=== PATIENT | male | born 1960 | race African-American/Black ===

== ENCOUNTER 2018-10-13 21:10 | Inpatient (IN) | payer OTHER ==
[2018-10-13 22:21] VITALS: BMI 25.8
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
[2018-10-13] MEDS ORDERED: MENTHOL/PHENOL 1 EACH UD MM PRN (23:49)
[2018-10-13] MEDS ORDERED: P-EPHED 60MG/TRIPROLIDI 2.5MG TABLET PO PRN (23:49)
[2018-10-13] MEDS ORDERED: MELATONIN 5 MG TABLETS PO PRN (23:49)
[2018-10-13] MEDS ORDERED: ONDANSETRON *ODT* 4 MG TABLET SL PRN (23:49)
[2018-10-13] MEDS ORDERED: IBUPROFEN 400 MG TABLET (FP) PO PRN (23:49)
[2018-10-13] MEDS ORDERED: ACETAMINOPHEN 325 MG TABLET (FP) PO PRN ×2 (23:49)
[2018-10-13] MEDS ORDERED: NICOTINE POLACRILEX 2 MG GUM BUC PRN (23:49)
[2018-10-13] MEDS ORDERED: MAGNESIUM CITRATE 300 ML BOTTLE PO PRN (23:49)
[2018-10-13] MEDS ORDERED: MAGNESIUM HYDROX 2400MG/30ML ORAL SUSPENSION 30 ML CUP PO PRN (23:49)
[2018-10-13] MEDS ORDERED: MAG HYDROX/AL HYDROX/SIMETH 30 ML UNIT-DOSE CUP PO PRN (23:49)
[2018-10-13] MEDS ORDERED: BISMUTH SUBSALICYLATE 524 MG/30 ML UD PO PRN (23:49)
[2018-10-13] MEDS ORDERED: METHOCARBAMOL 500 MG TABLET PO PRN (23:49)
[2018-10-13] MEDS ORDERED: hydrOXYzine PAMOATE 25 MG CAPSULE (FP) PO PRN (23:49)
[2018-10-13] MEDS ORDERED: guaiFENesin 200 MG/10 ML 10 ML UNIT-DOSE CUPS PO PRN (23:49)
[2018-10-14] MEDS ORDERED: chlordiazePOXIDE HCL 25 MG CAPSULE PO PRN (00:10)
[2018-10-14] MEDS ORDERED: chlordiazePOXIDE HCL 25 MG CAPSULE PO ONE (00:10)
[2018-10-14] MEDS: INSULIN (LEVEMIR) 100 UNITS/ML UNITS SQ SCH ×2 (00:35→22:55)
[2018-10-14] MEDS: chlordiazePOXIDE HCL 25 MG CAPSULE PO SCH ×4 (05:46→22:55)
[2018-10-14] MEDS: metFORMIN HCL 500 MG TABLET (FP) PO SCH ×2 (06:03→17:58)
[2018-10-14] MEDS: ASPIRIN 81 MG CHEWABLE TABLETS PO SCH (10:46)
[2018-10-14] MEDS: PANTOPRAZOLE 20 MG TABLET (FP) PO SCH (10:46)
[2018-10-14] MEDS: PRENATAL VITAMINS W/ FOLIC ACID TABLET (FP) PO SCH (10:47)
[2018-10-14] MEDS: LISINOPRIL 10 MG TABLET (FP) PO SCH (10:47)
[2018-10-14] MEDS: NICOTINE 14 MG/24 HOURS TOPICAL PATCH TD SCH (10:48)
[2018-10-14 11:03] LABS: HEMATOCRIT 40.4 % (35.4-49); MCH 26.4 pg (25.7-33.7); MCHC 32.1 g/dl (32.0-35.9); MEAN CELL VOLUME 82.1 fl (80-96); MEAN PLT VOLUME 8.6 fl (7.5-11.1); PLATELET COUNT 184 K/MM3 (134-434); RBC 4.92 M/mm3 (4.00-5.60); RDW 14.7 % (11.9-15.9); WHITE BLOOD COUNT 5.6 K/mm3 (4.0-10.0)
[2018-10-14 11:09] LABS: ALBUMIN 3.3 g/dl (3.4-5.0); ALK PHOS 109 U/L (45-117); ANION GAP 8 MMOL/L (8-16); BILIRUBIN,TOTAL 0.4 mg/dL (0.2-1); BLOOD UREA NITROGEN 14 mg/dL (7-18); CALCIUM 8.3 mg/dL (8.5-10.1); CHLORIDE 100 mmol/L (98-107); CO2 28 mmol/L (21-32); CREATININE 0.8 mg/dL (0.55-1.3); GLUCOSE,RANDOM 244 mg/dL (74-106); POTASSIUM 3.9 mmol/L (3.5-5.1); SGOT/AST 41 U/L (15-37); SGPT/ALT 63 U/L (13-61); SODIUM 135 mmol/L (136-145); TOT PROT 6.3 g/dl (6.4-8.2)
--- NOTE | 2018-10-14 16:58 | PN ---
[facility] CIWA - CIWA Score Nausea/Vomitin-Mild Nausea/No Vomiting Muscle Tremors: 3 Anxiety: 2 Agitation: 2 Paroxysmal Sweats: 3 Orientation: 0-Oriented Tacttile Disturbances: 0-None Auditory Disturbances: 0-None Visual Disturbances: 0-None Headache: 0-None Present CIWA-Ar Total Score: 11 [facility] Progress Note (SOAP) Subjective: sweats Objective: 10/14/18 16:56 In bed irritable because "wants to just sleep" Denies SI/HI no acute distress noted Vital Signs Temperature 97.9 F 10/14/18 09:59 Pulse Rate 99 H 10/14/18 09:59 Respiratory Rate 20 10/14/18 09:59 Blood Pressure 129/80 10/14/18 09:59 O2 Sat by Pulse Oximetry (%) Laboratory Last Values WBC 5.6 K/mm3 (4.0-10.0) 10/14/18 07:45 RBC 4.92 M/mm3 (4.00-5.60) 10/14/18 07:45 Hgb 13.0 GM/dL (11.7-16.9) 10/14/18 07:45 Hct 40.4 % (35.4-49) 10/14/18 07:45 MCV 82.1 fl (80-96) 10/14/18 07:45 MCH 26.4 pg (25.7-33.7) 10/14/18 07:45 MCHC 32.1 g/dl (32.0-35.9) 10/14/18 07:45 RDW 14.7 % (11.9-15.9) 10/14/18 07:45 Plt Count 184 K/MM3 (134-434) 10/14/18 07:45 MPV 8.6 fl (7.5-11.1) 10/14/18 07:45 Sodium 135 mmol/L (136-145) L 10/14/18 07:45 Potassium 3.9 mmol/L (3.5-5.1) 10/14/18 07:45 Chloride 100 mmol/L (98-107) 10/14/18 07:45 Carbon Dioxide 28 mmol/L (21-32) 10/14/18 07:45 Anion Gap 8 MMOL/L (8-16) 10/14/18 07:45 BUN 14 mg/dL (7-18) 10/14/18 07:45 Creatinine 0.8 mg/dL (0.55-1.3) 10/14/18 07:45 Creat Clearance w eGFR 99.64 (>60) 10/14/18 07:45 POC Glucometer 493 UNITS (80-120) 10/14/18 16:54 Random Glucose 244 mg/dL (74-106) H 10/14/18 07:45 Calcium 8.3 mg/dL (8.5-10.1) L 10/14/18 07:45 Total Bilirubin 0.4 mg/dL (0.2-1) 10/14/18 07:45 AST 41 U/L (15-37) H 10/14/18 07:45 ALT 63 U/L (13-61) H 10/14/18 07:45 Alkaline Phosphatase 109 U/L (45-117) 10/14/18 07:45 Total Protein 6.3 g/dl (6.4-8.2) L 10/14/18 07:45 Albumin 3.3 g/dl (3.4-5.0) L 10/14/18 07:45 RPR Titer Nonreactive (NONREACTIVE) 10/14/18 07:45 labs noted, High random glucose; pt is diabetic Assessment: 10/14/18 16:58 withdrawal sx DM 2 Plan: continue detox Continue diabetic agents as ordered continue BGM increase water hydration continue NCS diet
--- NOTE | 2018-10-14 18:36 | PN ---
S Progress Note Note: called by nurse,bgm is [phone],will place patient on sliding scale of novolog coverage,close monitoring
[2018-10-14] MEDS: INSULIN SLIDING SCALE (NOVOLOG) 1 VIAL SQ SCH ×2 (18:55→22:56)
[2018-10-14] MEDS: THIAMINE HCL 100 MG TABLET (FP) PO SCH (22:55)
[2018-10-15] MEDS: metFORMIN HCL 500 MG TABLET (FP) PO SCH ×2 (07:12→16:49)
[2018-10-15] MEDS: chlordiazePOXIDE HCL 25 MG CAPSULE PO SCH ×4 (07:13→22:00)
[2018-10-15] MEDS ORDERED: INSULIN SLIDING SCALE (NOVOLOG) 1 VIAL SQ ONE (07:16)
[2018-10-15] MEDS: INSULIN SLIDING SCALE (NOVOLOG) 1 VIAL SQ SCH ×4 (07:19→22:00)
[2018-10-15] MEDS: ASPIRIN 81 MG CHEWABLE TABLETS PO SCH (10:44)
[2018-10-15] MEDS: LISINOPRIL 10 MG TABLET (FP) PO SCH (10:44)
[2018-10-15] MEDS: PANTOPRAZOLE 20 MG TABLET (FP) PO SCH (10:44)
[2018-10-15] MEDS: PRENATAL VITAMINS W/ FOLIC ACID TABLET (FP) PO SCH (10:45)
--- NOTE | 2018-10-15 10:45 | PN ---
S CIWA - CIWA Score Nausea/Vomitin-Mild Nausea/No Vomiting Muscle Tremors: 2 Anxiety: 1-Mildly Anxious Agitation: 1-Slight > Activity Paroxysmal Sweats: 1-Minimal Palms Moist Orientation: 0-Oriented Tacttile Disturbances: 0-None Auditory Disturbances: 0-None Visual Disturbances: 0-None Headache: 0-None Present CIWA-Ar Total Score: 6 [facility] Progress Note (SOAP) Subjective: discuss risks of glucose serum elevation mild tremor feeling ok today Objective: 10/15/18 10:46 Vital Signs Temperature 97.5 F L 10/15/18 09:49 Pulse Rate 107 H 10/15/18 09:49 Respiratory Rate 18 10/15/18 09:49 Blood Pressure 110/77 10/15/18 09:49 O2 Sat by Pulse Oximetry (%) Laboratory Last Values WBC 5.6 K/mm3 (4.0-10.0) 10/14/18 07:45 RBC 4.92 M/mm3 (4.00-5.60) 10/14/18 07:45 Hgb 13.0 GM/dL (11.7-16.9) 10/14/18 07:45 Hct 40.4 % (35.4-49) 10/14/18 07:45 MCV 82.1 fl (80-96) 10/14/18 07:45 MCH 26.4 pg (25.7-33.7) 10/14/18 07:45 MCHC 32.1 g/dl (32.0-35.9) 10/14/18 07:45 RDW 14.7 % (11.9-15.9) 10/14/18 07:45 Plt Count 184 K/MM3 (134-434) 10/14/18 07:45 MPV 8.6 fl (7.5-11.1) 10/14/18 07:45 Sodium 135 mmol/L (136-145) L 10/14/18 07:45 Potassium 3.9 mmol/L (3.5-5.1) 10/14/18 07:45 Chloride 100 mmol/L (98-107) 10/14/18 07:45 Carbon Dioxide 28 mmol/L (21-32) 10/14/18 07:45 Anion Gap 8 MMOL/L (8-16) 10/14/18 07:45 BUN 14 mg/dL (7-18) 10/14/18 07:45 Creatinine 0.8 mg/dL (0.55-1.3) 10/14/18 07:45 Creat Clearance w eGFR 99.64 (>60) 10/14/18 07:45 POC Glucometer 229 UNITS (80-120) 10/15/18 07:10 Random Glucose 244 mg/dL (74-106) H 10/14/18 07:45 Calcium 8.3 mg/dL (8.5-10.1) L 10/14/18 07:45 Total Bilirubin 0.4 mg/dL (0.2-1) 10/14/18 07:45 AST 41 U/L (15-37) H 10/14/18 07:45 ALT 63 U/L (13-61) H 10/14/18 07:45 Alkaline Phosphatase 109 U/L (45-117) 10/14/18 07:45 Total Protein 6.3 g/dl (6.4-8.2) L 10/14/18 07:45 Albumin 3.3 g/dl (3.4-5.0) L 10/14/18 07:45 RPR Titer Nonreactive (NONREACTIVE) 10/14/18 07:45 lab noted Assessment: 10/15/18 10:47 withdrawal sx Plan: continue detox
[2018-10-15] MEDS: NICOTINE 14 MG/24 HOURS TOPICAL PATCH TD SCH (10:46)
[2018-10-15] MEDS: INSULIN (LEVEMIR) 100 UNITS/ML UNITS SQ SCH (22:00)
[2018-10-15] MEDS: THIAMINE HCL 100 MG TABLET (FP) PO SCH (22:00)
[2018-10-16] MEDS ORDERED: chlordiazePOXIDE HCL 10 MG CAPSULE PO PRN (05:00)
[2018-10-16] MEDS: metFORMIN HCL 500 MG TABLET (FP) PO SCH (07:01)
[2018-10-16] MEDS ORDERED: INSULIN SLIDING SCALE (NOVOLOG) 1 VIAL SQ ONE (07:05)
[2018-10-16] MEDS: chlordiazePOXIDE HCL 10 MG CAPSULE PO SCH ×2 (07:09→10:33)
[2018-10-16] MEDS: INSULIN SLIDING SCALE (NOVOLOG) 1 VIAL SQ SCH ×2 (07:09→12:03)
[2018-10-16] MEDS: LISINOPRIL 10 MG TABLET (FP) PO SCH (10:33)
[2018-10-16] MEDS: PANTOPRAZOLE 20 MG TABLET (FP) PO SCH (10:33)
[2018-10-16] MEDS: PRENATAL VITAMINS W/ FOLIC ACID TABLET (FP) PO SCH (10:33)
[2018-10-16] MEDS: ASPIRIN 81 MG CHEWABLE TABLETS PO SCH (10:33)
[2018-10-16] MEDS: NICOTINE 14 MG/24 HOURS TOPICAL PATCH TD SCH (10:33)
[2018-10-16 13:14] VITALS: BP 111/77; PULSE 109; TEMP 98
--- NOTE | 2018-10-16 17:29 | PN ---
[facility] Progress Note (SOAP) Subjective: Tremors, Anxious, Sweating. Objective: PATIENT A & O X 3, OBSERVED AMBULATING ON UNIT. IN NO ACUTE DISTRESS. 10/16/18 17:27 Laboratory Tests 10/13/18 10/14/18 10/14/18 22:55 05:43 07:45 WBC 5.6 RBC 4.92 Hgb 13.0 Hct 40.4 MCV 82.1 MCH 26.4 MCHC 32.1 RDW 14.7 Plt Count 184 MPV 8.6 Sodium Potassium Chloride Carbon Dioxide Anion Gap BUN Creatinine Creat Clearance w eGFR POC Glucometer 373 248 Random Glucose Calcium Total Bilirubin AST ALT Alkaline Phosphatase Total Protein Albumin RPR Titer 10/14/18 10/14/18 10/14/18 07:45 07:45 16:54 WBC RBC Hgb Hct MCV MCH MCHC RDW Plt Count MPV Sodium 135 L Potassium 3.9 Chloride 100 Carbon Dioxide 28 Anion Gap 8 BUN 14 Creatinine 0.8 Creat Clearance w eGFR 99.64 POC Glucometer 493 Random Glucose 244 H Calcium 8.3 L Total Bilirubin 0.4 AST 41 H ALT 63 H Alkaline Phosphatase 109 Total Protein 6.3 L Albumin 3.3 L RPR Titer Nonreactive 10/14/18 10/15/18 10/15/18 21:39 07:10 16:22 WBC RBC Hgb Hct MCV MCH MCHC RDW Plt Count MPV Sodium Potassium Chloride Carbon Dioxide Anion Gap BUN Creatinine Creat Clearance w eGFR POC Glucometer 257 229 334 Random Glucose Calcium Total Bilirubin AST ALT Alkaline Phosphatase Total Protein Albumin RPR Titer 10/15/18 10/15/18 10/16/18 21:17 21:20 06:59 WBC RBC Hgb Hct MCV MCH MCHC RDW Plt Count MPV Sodium Potassium Chloride Carbon Dioxide Anion Gap BUN Creatinine Creat Clearance w eGFR POC Glucometer 569 552 251 Random Glucose Calcium Total Bilirubin AST ALT Alkaline Phosphatase Total Protein Albumin RPR Titer 10/16/18 11:56 WBC RBC Hgb Hct MCV MCH MCHC RDW Plt Count MPV Sodium Potassium Chloride Carbon Dioxide Anion Gap BUN Creatinine Creat Clearance w eGFR POC Glucometer 255 Random Glucose Calcium Total Bilirubin AST ALT Alkaline Phosphatase Total Protein Albumin RPR Titer LABS NOTED. Assessment: 10/16/18 17:28 WITHDRAWAL SYMPTOMS. Plan: CONTINUE DETOX.
--- NOTE | 2018-10-16 17:36 | DS ---
[facility] Detox Discharge Summary Admission Date: 10/13/18 Discharge Date: 10/16/18 - History Present History: Alcohol Dependence, Cocaine Dependence Additional Comments: PATIENT REPORTS THAT HE HAS A PERSONAL ISSUE TO ATTEND TO AND THAT HE DOES NOT WISH TO REMAIN ANY LONGER TO COMPLETE DETOX REGIMEN. RISKS OF LEAVING DETOX UNIT AGAINST MEDICAL ADVICE AND PRIOR TO COMPLETION OF DETOX REGIMEN EXPLAINED TO PATIENT. PATIENT ADVISED TO GO IMMEDIATELY TO NEAREST ER SHOULD ANY INTOLERABLE WITHDRAWAL / DETOX SYMPTOMS DEVELOP AT ANY TIME. PATIENT VERBALIZED UNDERSTANDING OF ALL INFORMATION / RECOMMENDATIONS PRESENTED TO HIM PRIOR TO DEPARTURE FROM DETOX UNIT. PATIENT DECLINED OFFER OF MEDICATION PRESCRIPTION FOR HOME MEDICATION AT TIME OF DISCHARGE FROM DETOX, NOTING THAT HE CURRENTLY HAS PRESCRIPTIONS FOR ALL PRESCRIBED HOME MEDICATIONS WITH HIS PROPERTY. PATIENT LEFT DETOX UNIT IN STABLE MEDICAL CONDITION. Pertinent Past History: HTN, Type II DM. - Physical Exam Results Vital Signs: Vital Signs Temperature 98.0 F 10/16/18 13:12 Pulse Rate 109 H 10/16/18 13:12 Respiratory Rate 20 10/16/18 13:12 Blood Pressure 111/77 10/16/18 13:12 O2 Sat by Pulse Oximetry (%) Pertinent Admission Physical Exam Findings: WITHDRAWAL SYMPTOMS. Laboratory Tests 10/13/18 10/14/18 10/14/18 22:55 05:43 07:45 WBC 5.6 RBC 4.92 Hgb 13.0 Hct 40.4 MCV 82.1 MCH 26.4 MCHC 32.1 RDW 14.7 Plt Count 184 MPV 8.6 Sodium Potassium Chloride Carbon Dioxide Anion Gap BUN Creatinine Creat Clearance w eGFR POC Glucometer 373 248 Random Glucose Calcium Total Bilirubin AST ALT Alkaline Phosphatase Total Protein Albumin RPR Titer 10/14/18 10/14/18 10/14/18 07:45 07:45 16:54 WBC RBC Hgb Hct MCV MCH MCHC RDW Plt Count MPV Sodium 135 L Potassium 3.9 Chloride 100 Carbon Dioxide 28 Anion Gap 8 BUN 14 Creatinine 0.8 Creat Clearance w eGFR 99.64 POC Glucometer 493 Random Glucose 244 H Calcium 8.3 L Total Bilirubin 0.4 AST 41 H ALT 63 H Alkaline Phosphatase 109 Total Protein 6.3 L Albumin 3.3 L RPR Titer Nonreactive 10/14/18 10/15/18 10/15/18 21:39 07:10 16:22 WBC RBC Hgb Hct MCV MCH MCHC RDW Plt Count MPV Sodium Potassium Chloride Carbon Dioxide Anion Gap BUN Creatinine Creat Clearance w eGFR POC Glucometer 257 229 334 Random Glucose Calcium Total Bilirubin AST ALT Alkaline Phosphatase Total Protein Albumin RPR Titer 10/15/18 10/15/18 10/16/18 21:17 21:20 06:59 WBC RBC Hgb Hct MCV MCH MCHC RDW Plt Count MPV Sodium Potassium Chloride Carbon Dioxide Anion Gap BUN Creatinine Creat Clearance w eGFR POC Glucometer 569 552 251 Random Glucose Calcium Total Bilirubin AST ALT Alkaline Phosphatase Total Protein Albumin RPR Titer 10/16/18 11:56 WBC RBC Hgb Hct MCV MCH MCHC RDW Plt Count MPV Sodium Potassium Chloride Carbon Dioxide Anion Gap BUN Creatinine Creat Clearance w eGFR POC Glucometer 255 Random Glucose Calcium Total Bilirubin AST ALT Alkaline Phosphatase Total Protein Albumin RPR Titer LABS NOTED. - Treatment Hospital Course: Detox Protocol Followed, Detoxed Safely - Medication Discharge Medications: Ambulatory Orders metFORMIN HCL [Glucophage] 1,000 mg PO BID #60 tab 03/19/14 Aspirin [ASA -] 81 mg PO DAILY 10/13/18 Insulin Glargine,Hum.rec.anlog [Lantus Solostar PEN -] 25 units SQ HS 10/13/18 Lisinopril [Prinivil] 10 mg PO DAILY 10/13/18 Omeprazole 20 mg PO BID 10/13/18 - AMA Did Patient Leave Against Medical Advice: Yes (PT HAS PERSONAL ISSUE AND DOES NOT WISH TO REMAIN TO COMPLETE DETOX REGIMEN)
[2018-10-17] MEDS ORDERED: chlordiazePOXIDE HCL 10 MG CAPSULE PO SCH (05:00)
== END 2018-10-16 14:13 | disposition left against medical advice (07) | DRG 770 ==
LOC: YASAS 21:10 → Y3N 22:24
PROVIDERS: ADMIT Surgery; ATTEND Surgery
PROC: HZ2ZZZZ Detoxification Services for Substance Abuse Treatment (ICD-10-PCS; principal; 2018-10-13)
DX: F10.230 Alcohol dependence with withdrawal, uncomplicated (principal); F14.20 Cocaine dependence, uncomplicated; I10 Essential (primary) hypertension; E11.65 Type 2 diabetes mellitus with hyperglycemia; Z79.4 Long term (current) use of insulin; Z79.84 Long term (current) use of oral hypoglycemic drugs
CPT/HCPCS: 36415; 80053; 82962; 85027; 86593

== ENCOUNTER 2019-08-02 12:08 | Inpatient (IN) | payer OTHER ==
[2019-08-02 14:59] VITALS: BMI 21.8
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
[2019-08-02] MEDS ORDERED: MAGNESIUM CITRATE 300 ML BOTTLE PO PRN (18:55)
[2019-08-02] MEDS ORDERED: BISMUTH SUBSALICYLATE 524 MG/30 ML UD PO PRN (18:55)
[2019-08-02] MEDS ORDERED: ACETAMINOPHEN 325 MG TABLET (FP) PO PRN ×2 (18:55)
[2019-08-02] MEDS ORDERED: METHOCARBAMOL 500 MG TABLET PO PRN (18:55)
[2019-08-02] MEDS ORDERED: MAGNESIUM HYDROX 2400MG/30ML ORAL SUSPENSION 30 ML CUP PO PRN (18:55)
[2019-08-02] MEDS ORDERED: guaiFENesin 200 MG/10 ML 10 ML UNIT-DOSE CUPS PO PRN (18:55)
[2019-08-02] MEDS ORDERED: ONDANSETRON *ODT* 4 MG TABLET SL PRN (18:55)
[2019-08-02] MEDS ORDERED: IBUPROFEN 400 MG TABLET (FP) PO PRN (18:55)
[2019-08-02] MEDS ORDERED: MAG HYDROX/AL HYDROX/SIMETH 30 ML UNIT-DOSE CUP PO PRN (18:55)
[2019-08-02] MEDS ORDERED: MELATONIN 5 MG TABLETS PO PRN (18:55)
[2019-08-02] MEDS ORDERED: MENTHOL/PHENOL 1 EACH UD MM PRN (18:55)
[2019-08-02] MEDS ORDERED: hydrOXYzine PAMOATE 25 MG CAPSULE (FP) PO PRN (18:55)
[2019-08-02] MEDS: chlordiazePOXIDE HCL 10 MG CAPSULE PO PRN (19:48)
[2019-08-02] MEDS: INSULIN (LEVEMIR) 100 UNITS/ML UNITS SQ SCH (21:32)
[2019-08-02] MEDS: INSULIN SLIDING SCALE (NOVOLOG) 1 VIAL SQ SCH (21:33)
[2019-08-02] MEDS ORDERED: PATIENT'S OWN MEDICATION (NON-FORMULARY) (Metformin Hcl [Glucophage] 1,000 MG) PO SCH (22:00)
[2019-08-02] MEDS ORDERED: PATIENT'S OWN MEDICATION (NON-FORMULARY) (Insulin Glargine,Hum.Rec.Anlog 25 UNITS) SQ SCH (22:00)
[2019-08-02] MEDS: THIAMINE HCL 100 MG TABLET (FP) PO SCH (22:26)
[2019-08-02] MEDS: chlordiazePOXIDE HCL 25 MG CAPSULE PO SCH (22:26)
[2019-08-02] MEDS: MINERAL OIL/PET HY-PHL TOPICAL OINTMENT 454 GM JAR TP SCH (22:29)
[2019-08-03] MEDS: chlordiazePOXIDE HCL 25 MG CAPSULE PO SCH ×3 (05:58→21:39)
[2019-08-03] MEDS: metFORMIN HCL 500 MG TABLET (FP) PO SCH ×2 (06:01→17:04)
[2019-08-03] MEDS: INSULIN SLIDING SCALE (NOVOLOG) 1 VIAL SQ SCH ×4 (06:02→21:42)
[2019-08-03 09:27] LABS: HEMATOCRIT 43.6 % (35.4-49); HEMOGLOBIN 14.7 GM/dL (11.7-16.9); MCH 28.7 pg (25.7-33.7); MCHC 33.7 g/dl (32.0-35.9); MEAN CELL VOLUME 85.2 fl (80-96); MEAN PLT VOLUME 9.1 fl (7.5-11.1); PLATELET COUNT 259 K/MM3 (134-434); RBC 5.11 M/mm3 (4.00-5.60); RDW 15.8 % (11.9-15.9); WHITE BLOOD COUNT 5.6 K/mm3 (4.0-10.0)
[2019-08-03 10:06] LABS: ALBUMIN 3.3 g/dl (3.4-5.0); BILIRUBIN,TOTAL 0.3 mg/dL (0.2-1); BLOOD UREA NITROGEN 10.4 mg/dL (7-18); CALCIUM 8.8 mg/dL (8.5-10.1); CREATININE 0.8 mg/dL (0.55-1.3); POTASSIUM 3.8 mmol/L (3.5-5.1); TOT PROT 6.4 g/dl (6.4-8.2)
[2019-08-03] MEDS: MINERAL OIL/PET HY-PHL TOPICAL OINTMENT 454 GM JAR TP SCH ×2 (10:16→21:42)
[2019-08-03] MEDS: LISINOPRIL 10 MG TABLET (FP) PO SCH (10:17)
[2019-08-03] MEDS: ASPIRIN 81 MG CHEWABLE TABLETS PO SCH (10:17)
[2019-08-03] MEDS: PANTOPRAZOLE 20 MG TABLET PO SCH (10:17)
[2019-08-03] MEDS: PRENATAL VITAMINS W/ FOLIC ACID TABLET (FP) PO SCH (10:18)
[2019-08-03] MEDS: chlordiazePOXIDE HCL 10 MG CAPSULE PO PRN (17:06)
[2019-08-03] MEDS: THIAMINE HCL 100 MG TABLET (FP) PO SCH (21:40)
[2019-08-03] MEDS: INSULIN (LEVEMIR) 100 UNITS/ML UNITS SQ SCH (21:42)
[2019-08-04] MEDS: metFORMIN HCL 500 MG TABLET (FP) PO SCH ×2 (06:12→17:12)
[2019-08-04] MEDS: chlordiazePOXIDE 5 MG CAPSULE PO SCH ×3 (06:12→22:15)
[2019-08-04] MEDS: INSULIN SLIDING SCALE (NOVOLOG) 1 VIAL SQ SCH ×4 (06:25→22:48)
--- NOTE | 2019-08-04 09:49 | PN ---
S CIWA - CIWA Score Nausea/Vomitin-No Nausea/No Vomiting Muscle Tremors: 2 Anxiety: 3 Agitation: 0-Normal Activity Paroxysmal Sweats: 3 Orientation: 0-Oriented Tacttile Disturbances: 0-None Auditory Disturbances: 0-None Visual Disturbances: 0-None Headache: 2-Mild CIWA-Ar Total Score: 10 BHS Progress Note (SOAP) Subjective: c/o sweats, shakes, anxiety, and headache. Objective: 08/04/19 09:45 Vital Signs 08/04/19 08/04/19 08/04/19 03:30 06:12 09:05 Temperature 97.6 F 97.0 F L Pulse Rate 77 80 Respiratory 18 18 18 Rate Blood Pressure 102/71 114/75 Laboratory Last Values WBC 5.6 K/mm3 (4.0-10.0) 08/03/19 08:20 RBC 5.11 M/mm3 (4.00-5.60) 08/03/19 08:20 Hgb 14.7 GM/dL (11.7-16.9) 08/03/19 08:20 Hct 43.6 % (35.4-49) 08/03/19 08:20 MCV 85.2 fl (80-96) 08/03/19 08:20 MCH 28.7 pg (25.7-33.7) 08/03/19 08:20 MCHC 33.7 g/dl (32.0-35.9) 08/03/19 08:20 RDW 15.8 % (11.9-15.9) 08/03/19 08:20 Plt Count 259 K/MM3 (134-434) D 08/03/19 08:20 MPV 9.1 fl (7.5-11.1) 08/03/19 08:20 Sodium 140 mmol/L (136-145) 08/03/19 08:20 Potassium 3.8 mmol/L (3.5-5.1) 08/03/19 08:20 Chloride 104 mmol/L (98-107) 08/03/19 08:20 Carbon Dioxide 29 mmol/L (21-32) 08/03/19 08:20 Anion Gap 7 MMOL/L (8-16) L 08/03/19 08:20 BUN 10.4 mg/dL (7-18) 08/03/19 08:20 Creatinine 0.8 mg/dL (0.55-1.3) 08/03/19 08:20 Est GFR (CKD-EPI)AfAm 114.13 08/03/19 08:20 Est GFR (CKD-EPI)NonAf 98.47 08/03/19 08:20 POC Glucometer 439 UNITS (80-120) 08/03/19 21:36 Random Glucose 130 mg/dL (74-106) H 08/03/19 08:20 Calcium 8.8 mg/dL (8.5-10.1) 08/03/19 08:20 Total Bilirubin 0.3 mg/dL (0.2-1) 08/03/19 08:20 AST 19 U/L (15-37) 08/03/19 08:20 ALT 31 U/L (13-61) 08/03/19 08:20 Alkaline Phosphatase 121 U/L (45-117) H 08/03/19 08:20 Total Protein 6.4 g/dl (6.4-8.2) 08/03/19 08:20 Albumin 3.3 g/dl (3.4-5.0) L 08/03/19 08:20 RPR Titer Nonreactive (NONREACTIVE) 08/03/19 08:20 Labs noted. 08/04/19 09:49 Assessment: 08/04/19 09:49 AOX3, in no acute respiratory distress. Full ROM, ambulating in the unit. Withdrawal symptoms. Plan: continue detox. Increase fluids.
[2019-08-04] MEDS: PRENATAL VITAMINS W/ FOLIC ACID TABLET (FP) PO SCH (10:58)
[2019-08-04] MEDS: LISINOPRIL 10 MG TABLET (FP) PO SCH (10:59)
[2019-08-04] MEDS: PANTOPRAZOLE 20 MG TABLET PO SCH (10:59)
[2019-08-04] MEDS: ASPIRIN 81 MG CHEWABLE TABLETS PO SCH (10:59)
[2019-08-04] MEDS: MINERAL OIL/PET HY-PHL TOPICAL OINTMENT 454 GM JAR TP SCH ×2 (16:13→22:13)
[2019-08-04] MEDS: INSULIN (LEVEMIR) 100 UNITS/ML UNITS SQ SCH (22:16)
[2019-08-04] MEDS: THIAMINE HCL 100 MG TABLET (FP) PO SCH (22:16)
[2019-08-05] MEDS ORDERED: chlordiazePOXIDE HCL 10 MG CAPSULE PO PRN
[2019-08-05] MEDS ORDERED: chlordiazePOXIDE HCL 10 MG CAPSULE PO SCH (05:00)
[2019-08-05] MEDS ORDERED: INSULIN SLIDING SCALE (NOVOLOG) 1 VIAL SQ ONE (05:17)
[2019-08-05] MEDS: INSULIN SLIDING SCALE (NOVOLOG) 1 VIAL SQ SCH ×2 (06:13→10:35)
[2019-08-05] MEDS: metFORMIN HCL 500 MG TABLET (FP) PO SCH (06:13)
[2019-08-05 09:04] VITALS: BP 112/67; PULSE 82; TEMP 97.4
--- NOTE | 2019-08-05 10:19 | PN ---
S CIWA - CIWA Score Nausea/Vomitin-No Nausea/No Vomiting Muscle Tremors: 2 Anxiety: 1-Mildly Anxious Agitation: 1-Slight > Activity Paroxysmal Sweats: 1-Minimal Palms Moist Orientation: 0-Oriented Tacttile Disturbances: 0-None Auditory Disturbances: 0-None Visual Disturbances: 0-None Headache: 1-Very Mild CIWA-Ar Total Score: 6 BHS Progress Note (SOAP) Subjective: 59 years old male admitted on 08/02/19 for alcohol withdrawal sx management treating with librium detox regimen feeling better today less tremor mild anxiety slept through the night Objective: 08/05/19 10:18 Vital Signs Temperature 97.4 F L 08/05/19 09:03 Pulse Rate 82 08/05/19 09:03 Respiratory Rate 16 08/05/19 09:03 Blood Pressure 112/67 08/05/19 09:03 O2 Sat by Pulse Oximetry (%) Laboratory Last Values WBC 5.6 K/mm3 (4.0-10.0) 08/03/19 08:20 RBC 5.11 M/mm3 (4.00-5.60) 08/03/19 08:20 Hgb 14.7 GM/dL (11.7-16.9) 08/03/19 08:20 Hct 43.6 % (35.4-49) 08/03/19 08:20 MCV 85.2 fl (80-96) 08/03/19 08:20 MCH 28.7 pg (25.7-33.7) 08/03/19 08:20 MCHC 33.7 g/dl (32.0-35.9) 08/03/19 08:20 RDW 15.8 % (11.9-15.9) 08/03/19 08:20 Plt Count 259 K/MM3 (134-434) D 08/03/19 08:20 MPV 9.1 fl (7.5-11.1) 08/03/19 08:20 Sodium 140 mmol/L (136-145) 08/03/19 08:20 Potassium 3.8 mmol/L (3.5-5.1) 08/03/19 08:20 Chloride 104 mmol/L (98-107) 08/03/19 08:20 Carbon Dioxide 29 mmol/L (21-32) 08/03/19 08:20 Anion Gap 7 MMOL/L (8-16) L 08/03/19 08:20 BUN 10.4 mg/dL (7-18) 08/03/19 08:20 Creatinine 0.8 mg/dL (0.55-1.3) 08/03/19 08:20 Est GFR (CKD-EPI)AfAm 114.13 08/03/19 08:20 Est GFR (CKD-EPI)NonAf 98.47 08/03/19 08:20 POC Glucometer 353 UNITS (80-120) 08/05/19 05:15 Random Glucose 130 mg/dL (74-106) H 08/03/19 08:20 Calcium 8.8 mg/dL (8.5-10.1) 08/03/19 08:20 Total Bilirubin 0.3 mg/dL (0.2-1) 08/03/19 08:20 AST 19 U/L (15-37) 08/03/19 08:20 ALT 31 U/L (13-61) 08/03/19 08:20 Alkaline Phosphatase 121 U/L (45-117) H 08/03/19 08:20 Total Protein 6.4 g/dl (6.4-8.2) 08/03/19 08:20 Albumin 3.3 g/dl (3.4-5.0) L 08/03/19 08:20 RPR Titer Nonreactive (NONREACTIVE) 08/03/19 08:20 lab noted Assessment: 08/05/19 10:18 alcohol withdrawal Plan: librium regimen
[2019-08-05] MEDS: MINERAL OIL/PET HY-PHL TOPICAL OINTMENT 454 GM JAR TP SCH (10:35)
[2019-08-05] MEDS: PRENATAL VITAMINS W/ FOLIC ACID TABLET (FP) PO SCH (10:35)
[2019-08-05] MEDS: LISINOPRIL 10 MG TABLET (FP) PO SCH (10:35)
[2019-08-05] MEDS: ASPIRIN 81 MG CHEWABLE TABLETS PO SCH (10:35)
[2019-08-05] MEDS: PANTOPRAZOLE 20 MG TABLET PO SCH (10:35)
--- NOTE | 2019-08-05 14:17 | DS ---
[facility] Detox Discharge Summary Admission Date: 08/02/19 Discharge Date: 08/05/19 - History Present History: Alcohol Dependence Additional Comments: 59 years old male admitted on 08/02/19 for alcohol withdrawal sx management treated with librium detox regimen patient prefers to leave the detox one day earlier than estimated discharge date of 08/06/19 case discussed with the nurse routine discharge is appropriated patient is alert oriented x 3 respiratory clear lungs bilaterally on auscultation extremities full range of motion skin warm and dry - Physical Exam Results Vital Signs: Vital Signs Temperature 97.4 F L 08/05/19 09:03 Pulse Rate 82 08/05/19 09:03 Respiratory Rate 16 08/05/19 09:03 Blood Pressure 112/67 08/05/19 09:03 O2 Sat by Pulse Oximetry (%) Pertinent Admission Physical Exam Findings: alcohol withdrawal Laboratory Last Values WBC 5.6 K/mm3 (4.0-10.0) 08/03/19 08:20 RBC 5.11 M/mm3 (4.00-5.60) 08/03/19 08:20 Hgb 14.7 GM/dL (11.7-16.9) 08/03/19 08:20 Hct 43.6 % (35.4-49) 08/03/19 08:20 MCV 85.2 fl (80-96) 08/03/19 08:20 MCH 28.7 pg (25.7-33.7) 08/03/19 08:20 MCHC 33.7 g/dl (32.0-35.9) 08/03/19 08:20 RDW 15.8 % (11.9-15.9) 08/03/19 08:20 Plt Count 259 K/MM3 (134-434) D 08/03/19 08:20 MPV 9.1 fl (7.5-11.1) 08/03/19 08:20 Sodium 140 mmol/L (136-145) 08/03/19 08:20 Potassium 3.8 mmol/L (3.5-5.1) 08/03/19 08:20 Chloride 104 mmol/L (98-107) 08/03/19 08:20 Carbon Dioxide 29 mmol/L (21-32) 08/03/19 08:20 Anion Gap 7 MMOL/L (8-16) L 08/03/19 08:20 BUN 10.4 mg/dL (7-18) 08/03/19 08:20 Creatinine 0.8 mg/dL (0.55-1.3) 08/03/19 08:20 Est GFR (CKD-EPI)AfAm 114.13 08/03/19 08:20 Est GFR (CKD-EPI)NonAf 98.47 08/03/19 08:20 POC Glucometer 353 UNITS (80-120) 08/05/19 05:15 Random Glucose 130 mg/dL (74-106) H 08/03/19 08:20 Calcium 8.8 mg/dL (8.5-10.1) 08/03/19 08:20 Total Bilirubin 0.3 mg/dL (0.2-1) 08/03/19 08:20 AST 19 U/L (15-37) 08/03/19 08:20 ALT 31 U/L (13-61) 08/03/19 08:20 Alkaline Phosphatase 121 U/L (45-117) H 08/03/19 08:20 Total Protein 6.4 g/dl (6.4-8.2) 08/03/19 08:20 Albumin 3.3 g/dl (3.4-5.0) L 08/03/19 08:20 RPR Titer Nonreactive (NONREACTIVE) 08/03/19 08:20 lab noted long history of diabetes - Treatment Hospital Course: Detox Protocol Followed, Detoxed Safely, Responded well, Discharged Condition Good, Rehab Referral Accepted Patient has Accepted a Rehab Referral to: [facility] - Medication Discharge Medications: Ambulatory Orders metFORMIN HCL [Glucophage] 1,000 mg PO BID #60 tab 03/19/14 Aspirin [ASA -] 81 mg PO DAILY 10/13/18 Insulin Glargine,Hum.rec.anlog [Lantus Solostar PEN -] 25 units SQ HS 10/13/18 Lisinopril [Prinivil] 10 mg PO DAILY 10/13/18 Omeprazole 20 mg PO BID 10/13/18 - Diagnosis (1) Weight decreased Status: Active (2) Alcohol dependence with uncomplicated withdrawal Status: Acute (3) DM Diabetes mellitus type 2 Status: Chronic (4) HTN (hypertension) Status: Chronic Qualifiers: Hypertension type: essential hypertension Qualified Code(s): I10 - Essential (primary) hypertension - AMA Did Patient Leave Against Medical Advice: No CIWA Score - CIWA Score Nausea/Vomitin-No Nausea/No Vomiting Muscle Tremors: 1-None Visible, but [place] Anxiety: 1-Mildly Anxious Agitation: 0-Normal Activity Paroxysmal Sweats: No Perspiration Orientation: 0-Oriented Tacttile Disturbances: 0-None Auditory Disturbances: 0-None Visual Disturbances: 0-None Headache: 1-Very Mild CIWA-Ar Total Score: 3
[2019-08-06] MEDS ORDERED: chlordiazePOXIDE HCL 10 MG CAPSULE PO ONE (05:00)
== END 2019-08-05 12:00 | disposition home or self-care (01) | DRG 774 ==
LOC: YASAS 12:08 → Y3N 19:11
PROVIDERS: ADMIT Allergy & Immunology; ATTEND Allergy & Immunology
PROC: HZ2ZZZZ Detoxification Services for Substance Abuse Treatment (ICD-10-PCS; principal; 2019-08-02)
DX: F10.230 Alcohol dependence with withdrawal, uncomplicated (principal); F14.20 Cocaine dependence, uncomplicated; F17.210 Nicotine dependence, cigarettes, uncomplicated; I10 Essential (primary) hypertension; E11.9 Type 2 diabetes mellitus without complications; R63.4 Abnormal weight loss; Z79.4 Long term (current) use of insulin; Z79.84 Long term (current) use of oral hypoglycemic drugs; Z59.0 Homelessness
CPT/HCPCS: 36415; 80053; 82962; 85027; 86593

== ENCOUNTER 2022-05-18 17:55 | Inpatient (IN) | payer OTHER ==
[2022-05-18 19:23] VITALS: BMI 19.3
[2022-05-18] MEDS ORDERED: DICYCLOMINE HCL 10 MG CAPSULE PO PRN (19:52)
[2022-05-18] MEDS ORDERED: MAG HYDROX/AL HYDROX/SIMETH 30 ML UNIT-DOSE CUP PO PRN (19:52)
[2022-05-18] MEDS ORDERED: MAGNESIUM CITRATE 300 ML BOTTLE PO PRN (19:52)
[2022-05-18] MEDS ORDERED: NICOTINE 10 MG CARTRIDGE (INHALER) IH PRN (19:52)
[2022-05-18] MEDS ORDERED: BENZOCAINE/MENTHOL (CHLORASEPTIC ) LOZENGE MM PRN (19:52)
[2022-05-18] MEDS ORDERED: LOPERAMIDE HCL 2 MG CAPSULE PO PRN (19:52)
[2022-05-18] MEDS ORDERED: BISMUTH SUBSALICYLATE 524 MG/30 ML PO PRN (19:52)
[2022-05-18] MEDS ORDERED: ONDANSETRON *ODT* 4 MG TABLET SL PRN (19:52)
[2022-05-18] MEDS ORDERED: ACETAMINOPHEN 325 MG TABLET (FP) PO PRN ×2 (19:52)
[2022-05-18] MEDS ORDERED: chlordiazePOXIDE HCL 25 MG CAPSULE PO PRN (19:52)
[2022-05-18] MEDS ORDERED: hydrOXYzine PAMOATE 25 MG CAPSULE (FP) PO PRN (19:52)
[2022-05-18] MEDS ORDERED: MAGNESIUM HYDROX 2400MG/30ML ORAL SUSPENSION 30 ML CUP PO PRN (19:52)
[2022-05-18] MEDS: INSULIN (LEVEMIR) 100 UNITS/ML UNITS SQ SCH (21:53)
[2022-05-18] MEDS: chlordiazePOXIDE HCL 25 MG CAPSULE PO SCH (22:20)
[2022-05-18] MEDS: THIAMINE HCL 100 MG TABLET (FP) PO SCH (22:21)
[2022-05-18] MEDS: MELATONIN 5 MG TABLETS PO SCH (22:21)
[2022-05-19] MEDS: chlordiazePOXIDE HCL 25 MG CAPSULE PO SCH ×4 (06:06→22:35)
[2022-05-19] MEDS: IBUPROFEN 600 MG TABLET (FP) PO PRN (06:08)
[2022-05-19] MEDS: INSULIN SLIDING SCALE (NOVOLOG) 1 VIAL SQ SCH ×3 (06:43→16:55)
[2022-05-19] MEDS: PRENATAL VITAMINS W/ FOLIC ACID TABLET (FP) PO SCH (10:51)
[2022-05-19] MEDS ORDERED: INSULIN (NOVOLOG) ASPART 100 UNITS/ML 10ML VIAL ONE ×2 (11:44→16:50)
[2022-05-19 13:18] LABS: HEMATOCRIT 39.3 % (35.4-49); HEMOGLOBIN 13.1 GM/dL (11.7-16.9); MCH 29.9 pg (25.7-33.7); MCHC 33.4 g/dl (32.0-35.9); MEAN CELL VOLUME 89.6 fl (80-96); MEAN PLT VOLUME 8.1 fl (7.5-11.1); PLATELET COUNT 154 10^3/uL (134-434); RBC 4.39 M/mm3 (4.00-5.60); RDW 14.1 % (11.9-15.9); WHITE BLOOD COUNT 3.8 K/mm3 (4.0-10.0)
[2022-05-19 13:41] LABS: ALBUMIN 3.2 g/dl (3.4-5.0); BLOOD UREA NITROGEN 12.4 mg/dL (7-18); CALCIUM 9.2 mg/dL (8.5-10.1)
[2022-05-19 13:44] LABS: CREATININE 0.8 mg/dL (0.55-1.3)
[2022-05-19 13:46] LABS: BILIRUBIN,TOTAL 0.3 mg/dL (0.2-1)
[2022-05-19] MEDS: IBUPROFEN 400 MG TABLET (FP) PO PRN ×2 (14:18→22:39)
[2022-05-19] MEDS: METHOCARBAMOL 500 MG TABLET PO PRN ×2 (14:18→22:39)
[2022-05-19] MEDS: LIDOCAINE 5% TOPICAL PATCH TP SCH (14:58)
[2022-05-19] MEDS: metFORMIN HCL 500 MG TABLET (FP) PO SCH (16:52)
[2022-05-19] MEDS: THIAMINE HCL 100 MG TABLET (FP) PO SCH (22:34)
[2022-05-19] MEDS: METHYL SALICYLATE/MENTHOL OINT 30 GM TUBE TP SCH (22:35)
[2022-05-19] MEDS: MELATONIN 5 MG TABLETS PO SCH (22:35)
[2022-05-19] MEDS: INSULIN (LEVEMIR) 100 UNITS/ML UNITS SQ SCH (22:41)
[2022-05-19] MEDS: LIDOCAINE PATCH REMOVAL MC SCH (22:41)
[2022-05-20] MEDS: chlordiazePOXIDE HCL 25 MG CAPSULE PO SCH ×4 (06:34→22:40)
[2022-05-20] MEDS: INSULIN SLIDING SCALE (NOVOLOG) 1 VIAL SQ SCH ×3 (07:59→17:02)
[2022-05-20] MEDS ORDERED: INSULIN (NOVOLOG) ASPART 100 UNITS/ML 10ML VIAL ONE ×2 (08:01→11:52)
[2022-05-20] MEDS: metFORMIN HCL 500 MG TABLET (FP) PO SCH ×2 (08:02→17:02)
[2022-05-20] MEDS: PRENATAL VITAMINS W/ FOLIC ACID TABLET (FP) PO SCH (10:57)
[2022-05-20] MEDS: LIDOCAINE 5% TOPICAL PATCH TP SCH (10:57)
[2022-05-20] MEDS: IBUPROFEN 400 MG TABLET (FP) PO PRN (11:00)
[2022-05-20] MEDS: IBUPROFEN 600 MG TABLET (FP) PO PRN ×2 (17:05→22:42)
[2022-05-20 17:11] VITALS: RESP 18
[2022-05-20] MEDS: MELATONIN 5 MG TABLETS PO SCH (22:40)
[2022-05-20] MEDS: THIAMINE HCL 100 MG TABLET (FP) PO SCH (22:40)
[2022-05-20] MEDS: LIDOCAINE PATCH REMOVAL MC SCH (22:41)
[2022-05-20] MEDS: METHYL SALICYLATE/MENTHOL OINT 30 GM TUBE TP SCH (22:41)
[2022-05-20] MEDS: INSULIN (LEVEMIR) 100 UNITS/ML UNITS SQ SCH (22:41)
[2022-05-20] MEDS: LISINOPRIL 10 MG TABLET PO SCH (22:43)
[2022-05-21] MEDS ORDERED: chlordiazePOXIDE HCL 10 MG CAPSULE PO PRN
[2022-05-21] MEDS: metFORMIN HCL 500 MG TABLET (FP) PO SCH (06:21)
[2022-05-21] MEDS: chlordiazePOXIDE HCL 10 MG CAPSULE PO SCH ×2 (06:21→10:46)
[2022-05-21] MEDS ORDERED: INSULIN (NOVOLOG) ASPART 100 UNITS/ML 10ML VIAL ONE (07:04)
[2022-05-21] MEDS: INSULIN SLIDING SCALE (NOVOLOG) 1 VIAL SQ SCH ×2 (07:16→11:43)
[2022-05-21] MEDS: LISINOPRIL 10 MG TABLET PO SCH (10:46)
[2022-05-21] MEDS: PRENATAL VITAMINS W/ FOLIC ACID TABLET (FP) PO SCH (10:46)
[2022-05-21] MEDS: LIDOCAINE 5% TOPICAL PATCH TP SCH (10:46)
[2022-05-21] MEDS: IBUPROFEN 600 MG TABLET (FP) PO PRN (10:49)
[2022-05-21] MEDS: METHOCARBAMOL 500 MG TABLET PO PRN (10:49)
[2022-05-21 13:04] VITALS: BP 141/77; PULSE 89; TEMP 97.9
[2022-05-22] MEDS ORDERED: chlordiazePOXIDE HCL 10 MG CAPSULE PO SCH (05:00)
[2022-05-23] MEDS ORDERED: chlordiazePOXIDE HCL 10 MG CAPSULE PO ONE (05:00)
== END 2022-05-21 15:35 | disposition home or self-care (01) | DRG 774 ==
LOC: YASAS 17:55 → Y6N 20:17
PROVIDERS: ADMIT Allergy & Immunology; ATTEND Surgery
PROC: HZ2ZZZZ Detoxification Services for Substance Abuse Treatment (ICD-10-PCS; principal; 2022-05-18)
DX: F10.230 Alcohol dependence with withdrawal, uncomplicated (principal); F14.20 Cocaine dependence, uncomplicated; F17.210 Nicotine dependence, cigarettes, uncomplicated; I10 Essential (primary) hypertension; E11.9 Type 2 diabetes mellitus without complications; Z79.4 Long term (current) use of insulin; M25.562 Pain in left knee; R63.4 Abnormal weight loss; Z68.1 Body mass index [BMI] 19.9 or less, adult
CPT/HCPCS: 36415; 80053; 82962; 85027; 86780; 87811; C9803-CS; U0003; U0005

== ENCOUNTER 2022-07-10 10:33 | Inpatient (IN) | payer OTHER ==
[2022-07-10 12:15] VITALS: BMI 17.7
[2022-07-10] MEDS ORDERED: LOPERAMIDE HCL 2 MG CAPSULE PO PRN (12:21)
[2022-07-10] MEDS ORDERED: DICYCLOMINE HCL 10 MG CAPSULE PO PRN (12:21)
[2022-07-10] MEDS ORDERED: POLYETHYLENE GLYCOL (HEALTHYLAX) 3350 17 GM PACKET PO PRN (12:21)
[2022-07-10] MEDS ORDERED: NICOTINE 10 MG CARTRIDGE (INHALER) IH PRN (12:21)
[2022-07-10] MEDS ORDERED: MAG HYDROX/AL HYDROX/SIMETH 30 ML UNIT-DOSE CUP PO PRN (12:21)
[2022-07-10] MEDS ORDERED: IBUPROFEN 600 MG TABLET (FP) PO PRN (12:21)
[2022-07-10] MEDS ORDERED: BENZOCAINE/MENTHOL (CHLORASEPTIC ) LOZENGE MM PRN (12:21)
[2022-07-10] MEDS ORDERED: IBUPROFEN 400 MG TABLET (FP) PO PRN (12:21)
[2022-07-10] MEDS ORDERED: chlordiazePOXIDE HCL 25 MG CAPSULE PO PRN (12:21)
[2022-07-10] MEDS ORDERED: ONDANSETRON *ODT* 4 MG TABLET SL PRN (12:21)
[2022-07-10] MEDS ORDERED: BISMUTH SUBSALICYLATE 524 MG/30 ML PO PRN (12:21)
[2022-07-10] MEDS ORDERED: MAGNESIUM HYDROX 2400MG/30ML ORAL SUSPENSION 30 ML CUP PO PRN (12:21)
[2022-07-10] MEDS ORDERED: ACETAMINOPHEN 325 MG TABLET (FP) PO PRN ×2 (12:21)
[2022-07-10] MEDS ORDERED: NALOXONE HCL (KLOXXADO) 8 MG SPRAY NS PRN (12:21)
[2022-07-10] MEDS: METHOCARBAMOL 500 MG TABLET PO PRN (14:16)
[2022-07-10] MEDS ORDERED: INSULIN (NOVOLOG) ASPART 100 UNITS/ML 10ML VIAL SQ ONE (16:42)
[2022-07-10] MEDS: INSULIN SLIDING SCALE (NOVOLOG) 1 VIAL SQ SCH (16:53)
[2022-07-10] MEDS: chlordiazePOXIDE HCL 25 MG CAPSULE PO SCH ×2 (17:55→22:48)
[2022-07-10] MEDS: THIAMINE HCL 100 MG TABLET (FP) PO SCH (22:47)
[2022-07-10] MEDS: MELATONIN 5 MG TABLETS PO SCH (22:47)
[2022-07-10] MEDS: INSULIN (LEVEMIR) 100 UNITS/ML UNITS SQ SCH (22:53)
[2022-07-11] MEDS: chlordiazePOXIDE HCL 25 MG CAPSULE PO SCH ×4 (06:14→22:42)
[2022-07-11] MEDS: metFORMIN HCL 500 MG TABLET (FP) PO SCH ×2 (07:03→17:00)
[2022-07-11] MEDS: INSULIN SLIDING SCALE (NOVOLOG) 1 VIAL SQ SCH ×5 (08:18→22:42)
[2022-07-11 10:40] LABS: CHLORIDE 100 mmol/L (98-107); HEMATOCRIT 37.9 % (35.4-49); HEMOGLOBIN 12.5 GM/dL (11.7-16.9); MCH 29.1 pg (25.7-33.7); MCHC 32.9 g/dl (32.0-35.9); MEAN CELL VOLUME 88.5 fl (80-96); MEAN PLT VOLUME 7.8 fl (7.5-11.1); PLATELET COUNT 220 10^3/uL (134-434); RBC 4.28 M/mm3 (4.00-5.60); RDW 13.8 % (11.9-15.9); SODIUM 139 mmol/L (136-145); WHITE BLOOD COUNT 5.2 K/mm3 (4.0-10.0)
[2022-07-11] MEDS: LISINOPRIL 10 MG TABLET PO SCH (10:42)
[2022-07-11] MEDS: PRENATAL VITAMINS W/ FOLIC ACID TABLET (FP) PO SCH (10:42)
[2022-07-11 10:45] LABS: CALCIUM 9.2 mg/dL (8.5-10.1)
[2022-07-11 10:46] LABS: ALBUMIN 3.1 g/dl (3.4-5.0); ANION GAP 9 MMOL/L (8-16); BLOOD UREA NITROGEN 10.8 mg/dL (7-18); CO2 30 mmol/L (21-32)
[2022-07-11 10:49] LABS: CREATININE 0.8 mg/dL (0.55-1.3); SGOT/AST 19 U/L (15-37); SGPT/ALT 23 U/L (13-61)
[2022-07-11 10:51] LABS: BILIRUBIN,TOTAL 0.4 mg/dL (0.2-1); TOT PROT 6.1 g/dl (6.4-8.2)
[2022-07-11 10:52] LABS: ALK PHOS 186 U/L (45-117)
[2022-07-11 10:57] LABS: GLUCOSE,RANDOM 444 mg/dL (74-106)
[2022-07-11] MEDS ORDERED: INSULIN (NOVOLOG) ASPART 100 UNITS/ML 10ML VIAL ONE (16:59)
[2022-07-11] MEDS: INSULIN (LEVEMIR) 100 UNITS/ML UNITS SQ SCH (22:41)
[2022-07-11] MEDS: THIAMINE HCL 100 MG TABLET (FP) PO SCH (22:42)
[2022-07-11] MEDS: MELATONIN 5 MG TABLETS PO SCH (22:42)
[2022-07-12] MEDS: chlordiazePOXIDE HCL 25 MG CAPSULE PO SCH ×4 (05:20→22:23)
[2022-07-12] MEDS: metFORMIN HCL 500 MG TABLET (FP) PO SCH ×2 (07:04→17:15)
[2022-07-12] MEDS: INSULIN SLIDING SCALE (NOVOLOG) 1 VIAL SQ SCH ×4 (07:05→22:19)
[2022-07-12] MEDS: PRENATAL VITAMINS W/ FOLIC ACID TABLET (FP) PO SCH (10:44)
[2022-07-12] MEDS: METHOCARBAMOL 500 MG TABLET PO PRN (10:46)
[2022-07-12] MEDS: LISINOPRIL 10 MG TABLET PO SCH (10:46)
[2022-07-12] MEDS ORDERED: INSULIN (NOVOLOG) ASPART 100 UNITS/ML 10ML VIAL ONE ×2 (17:05→22:22)
[2022-07-12] MEDS: MELATONIN 5 MG TABLETS PO SCH (22:19)
[2022-07-12] MEDS: THIAMINE HCL 100 MG TABLET (FP) PO SCH (22:22)
[2022-07-12] MEDS: INSULIN (LEVEMIR) 100 UNITS/ML UNITS SQ SCH (22:24)
[2022-07-13] MEDS ORDERED: chlordiazePOXIDE HCL 10 MG CAPSULE PO PRN
[2022-07-13] MEDS: chlordiazePOXIDE HCL 10 MG CAPSULE PO SCH ×2 (05:25→10:21)
[2022-07-13] MEDS: metFORMIN HCL 500 MG TABLET (FP) PO SCH (06:46)
[2022-07-13] MEDS: INSULIN SLIDING SCALE (NOVOLOG) 1 VIAL SQ SCH ×2 (06:47→11:15)
[2022-07-13] MEDS ORDERED: INSULIN (NOVOLOG) ASPART 100 UNITS/ML 10ML VIAL ONE ×2 (08:31→11:17)
[2022-07-13] MEDS: METHOCARBAMOL 500 MG TABLET PO PRN (10:21)
[2022-07-13] MEDS: PRENATAL VITAMINS W/ FOLIC ACID TABLET (FP) PO SCH (10:21)
[2022-07-13] MEDS: LISINOPRIL 10 MG TABLET PO SCH (10:21)
[2022-07-13 12:44] VITALS: BP 99/63; PULSE 90; RESP 18; TEMP 98
[2022-07-14] MEDS ORDERED: chlordiazePOXIDE HCL 10 MG CAPSULE PO SCH (05:00)
[2022-07-15] MEDS ORDERED: chlordiazePOXIDE HCL 10 MG CAPSULE PO ONE (05:00)
== END 2022-07-13 13:59 | disposition home or self-care (01) | DRG 774 ==
LOC: YASAS 10:33 → Y6N 12:51
PROVIDERS: ADMIT Allergy & Immunology; ATTEND Surgery
PROC: HZ2ZZZZ Detoxification Services for Substance Abuse Treatment (ICD-10-PCS; principal; 2022-07-10)
DX: F10.230 Alcohol dependence with withdrawal, uncomplicated (principal); F14.20 Cocaine dependence, uncomplicated; F17.210 Nicotine dependence, cigarettes, uncomplicated; I10 Essential (primary) hypertension; E11.9 Type 2 diabetes mellitus without complications; Z79.4 Long term (current) use of insulin; Z88.8 Allergy status to other drugs, medicaments and biological substances; Z91.013 Allergy to seafood
CPT/HCPCS: 36415; 80053; 82962; 85027; 86780; C9803-CS; U0003; U0005

== ENCOUNTER 2023-09-29 20:54 | Inpatient (IN) | payer OTHER ==
[2023-09-30 02:22] VITALS: BMI 18.5
[2023-09-30] MEDS ORDERED: ONDANSETRON *ODT* 4 MG TABLET SL PRN (09:07)
[2023-09-30] MEDS ORDERED: ACETAMINOPHEN 325 MG TABLET (FP) PO PRN (09:07)
[2023-09-30] MEDS ORDERED: IBUPROFEN 600 MG TABLET (FP) PO PRN (09:07)
[2023-09-30] MEDS ORDERED: BISMUTH SUBSALICYLATE 524 MG/30 ML PO PRN (09:07)
[2023-09-30] MEDS ORDERED: IBUPROFEN 400 MG TABLET (FP) PO PRN (09:07)
[2023-09-30] MEDS ORDERED: POLYETHYLENE GLYCOL (HEALTHYLAX) 3350 17 GM PACKET PO PRN (09:07)
[2023-09-30] MEDS ORDERED: P-EPHED 60MG/TRIPROLIDI 2.5MG TABLET PO PRN (09:07)
[2023-09-30] MEDS ORDERED: LOPERAMIDE HCL 2 MG CAPSULE PO PRN (09:07)
[2023-09-30] MEDS ORDERED: MAG HYDROX/AL HYDROX/SIMETH 30 ML UNIT-DOSE CUP PO PRN (09:07)
[2023-09-30] MEDS ORDERED: BENZONATATE 200 MG CAPSULE PO PRN (09:07)
[2023-09-30] MEDS ORDERED: DICYCLOMINE HCL 10 MG CAPSULE PO PRN (09:07)
[2023-09-30] MEDS ORDERED: guaiFENesin 600 MG TABLET.ER (FP) PO PRN (09:07)
[2023-09-30] MEDS ORDERED: BENZOCAINE/MENTHOL (CHLORASEPTIC ) LOZENGE MM PRN (09:07)
[2023-09-30] MEDS ORDERED: NICOTINE POLACRILEX 2 MG GUM BUC PRN (09:07)
[2023-09-30] MEDS ORDERED: MAGNESIUM HYDROX 2400MG/30ML ORAL SUSPENSION 30 ML CUP PO PRN (09:07)
[2023-09-30] MEDS: INSULIN (NOVOLOG) ASPART 100 UNITS/ML 10ML VIAL SQ ONE (09:48)
[2023-09-30] MEDS ORDERED: LISINOPRIL 10 MG TABLET ONE (10:12)
[2023-09-30] MEDS ORDERED: PRENATAL VITAMINS W/ FOLIC ACID TABLET (FP) PO ONE (10:13)
[2023-09-30] MEDS: PRENATAL VITAMINS W/ FOLIC ACID TABLET (FP) PO SCH (10:31)
[2023-09-30] MEDS: LISINOPRIL 10 MG TABLET PO SCH (10:31)
[2023-09-30] MEDS ORDERED: diazePAM 5 MG TABLET ONE (10:49)
[2023-09-30] MEDS: diazePAM 5 MG TABLET PO SCH (10:55)
[2023-09-30] MEDS ORDERED: INSULIN ASPART SLIDING SCALE (NOVOLOG) 1 VIAL SQ SCH (11:00)
[2023-09-30] MEDS: INSULIN ASPART SLIDING SCALE (NOVOLOG) 1 VIAL SQ SCH (13:01)
[2023-09-30] MEDS: OFLOXACIN 0.3% OPHTHALMIC SOLUTION 5 ML BOTTLE OU SCH (13:02)
[2023-09-30] MEDS: metFORMIN HCL 500 MG TABLET (FP) PO SCH (16:42)
[2023-09-30] MEDS ORDERED: INSULIN (NOVOLOG) ASPART 100 UNITS/ML 10ML VIAL ONE (17:32)
[2023-09-30] MEDS: MELATONIN 5 MG TABLETS PO SCH (22:42)
[2023-09-30] MEDS: THIAMINE HCL 100 MG TABLET (FP) PO SCH (22:43)
[2023-10-01] MEDS: diazePAM 5 MG TABLET PO SCH (06:21)
[2023-10-01] MEDS ORDERED: INSULIN (NOVOLOG) ASPART 100 UNITS/ML 10ML VIAL ONE ×2 (11:48→17:26)
[2023-10-01 12:52] LABS: CHLORIDE 99 mmol/L (98-107); POTASSIUM 4.3 mmol/L (3.5-5.1); SODIUM 134 mmol/L (136-145)
[2023-10-01 12:54] LABS: HEMATOCRIT 38.1 % (35.4-49); HEMOGLOBIN 12.8 GM/dL (11.7-16.9); MCHC 33.7 g/dl (32.0-35.9); MEAN CELL VOLUME 89.1 fl (80-96); MEAN PLT VOLUME 8.7 fl (7.5-11.1); PLATELET COUNT 133 10^3/uL (134-434); RBC 4.28 M/mm3 (4.00-5.60); RDW 13.2 % (11.9-15.9); WHITE BLOOD COUNT 5.4 K/mm3 (4.0-10.0)
[2023-10-01 13:03] LABS: ANION GAP 6 mmol/L (4-13); BLOOD UREA NITROGEN 21.3 mg/dL (7-18); CO2 29 mmol/L (21-32)
[2023-10-01 13:06] LABS: CREATININE 0.8 mg/dL (0.55-1.3); SGOT/AST 27 U/L (15-37); SGPT/ALT 44 U/L (13-61)
[2023-10-01 13:08] LABS: BILIRUBIN,TOTAL 0.4 mg/dL (0.2-1); TOT PROT 6.3 g/dl (6.4-8.2)
[2023-10-01 13:09] LABS: ALK PHOS 301 U/L (45-117)
[2023-10-01 13:18] LABS: GLUCOSE,RANDOM 565 mg/dL (74-106)
[2023-10-01] MEDS: GABAPENTIN 300 MG CAPSULE PO ONE (21:37)
[2023-10-02] MEDS: diazePAM 5 MG TABLET PO ONE (05:45)
[2023-10-02 11:16] VITALS: BP 132/70; PULSE 95; RESP 16; TEMP 97.8
[2023-10-02] MEDS ORDERED: INSULIN (LEVEMIR) 100 UNITS/ML UNITS SQ SCH (22:00)
== END 2023-10-02 10:58 | disposition home or self-care (01) | DRG 774 ==
LOC: YASAS 20:54 → Y6N 09-30 10:07
PROVIDERS: ADMIT Allergy & Immunology; ATTEND Surgery
PROC: HZ2ZZZZ Detoxification Services for Substance Abuse Treatment (ICD-10-PCS; principal; 2023-09-30)
DX: F10.230 Alcohol dependence with withdrawal, uncomplicated (principal); F14.20 Cocaine dependence, uncomplicated; F17.210 Nicotine dependence, cigarettes, uncomplicated; I10 Essential (primary) hypertension; E11.9 Type 2 diabetes mellitus without complications; Z79.4 Long term (current) use of insulin; R63.4 Abnormal weight loss; Z68.1 Body mass index [BMI] 19.9 or less, adult; Z88.8 Allergy status to other drugs, medicaments and biological substances
CPT/HCPCS: 0241U-QW; 36415; 80053; 80305; 82962; 85027; 86780; 87811; 93005; 93010

== ENCOUNTER 2025-04-24 08:18 | Inpatient (IN) | payer OTHER ==
[2025-04-24 08:48] VITALS: BMI 19.8
[2025-04-24] MEDS ORDERED: hydrOXYzine PAMOATE 25 MG CAPSULE (FP) PO PRN (08:55)
[2025-04-24] MEDS ORDERED: NALOXONE (NARCAN) HCL 4 MG/0.1 ML SPRAY NS PRN (08:55)
[2025-04-24] MEDS ORDERED: NICOTINE POLACRILEX 2 MG LOZENGE BC PRN (08:55)
[2025-04-24] MEDS ORDERED: guaiFENesin 600 MG TABLET.ER (FP) PO PRN (08:55)
[2025-04-24] MEDS ORDERED: MAGNESIUM HYDROX 2400MG/30ML ORAL SUSPENSION 30 ML CUP PO PRN (08:55)
[2025-04-24] MEDS ORDERED: BISMUTH SUBSALICYLATE 524 MG/30 ML PO PRN (08:55)
[2025-04-24] MEDS ORDERED: DICYCLOMINE HCL 10 MG CAPSULE PO PRN (08:55)
[2025-04-24] MEDS ORDERED: ONDANSETRON *ODT* 4 MG TABLET SL PRN (08:55)
[2025-04-24] MEDS ORDERED: MAG HYDROX/AL HYDROX/SIMETH 30 ML UNIT-DOSE CUP PO PRN (08:55)
[2025-04-24] MEDS ORDERED: LOPERAMIDE HCL 2 MG CAPSULE PO PRN (08:55)
[2025-04-24] MEDS ORDERED: POLYETHYLENE GLYCOL (HEALTHYLAX) 3350 17 GM PACKET PO PRN (08:55)
[2025-04-24] MEDS ORDERED: IBUPROFEN 400 MG TABLET (FP) PO PRN (08:55)
[2025-04-24] MEDS ORDERED: NALTREXONE HCL 50 MG TABLET PO ONE (08:55)
[2025-04-24] MEDS ORDERED: BENZOCAINE/MENTHOL (CHLORASEPTIC ) LOZENGE MM PRN (08:55)
[2025-04-24] MEDS ORDERED: PRENATAL VITAMINS W/ FOLIC ACID TABLET (FP) PO ONE (09:38)
[2025-04-24] MEDS: NICOTINE 14 MG/24 HOURS TOPICAL PATCH TD SCH (09:39)
[2025-04-24] MEDS: PRENATAL VITAMINS W/ FOLIC ACID TABLET (FP) PO SCH (09:39)
[2025-04-24] MEDS: NALTREXONE HCL 50 MG TABLET PO ONE (12:19)
[2025-04-24] MEDS: GABAPENTIN 100 MG CAPSULE PO SCH (13:36)
[2025-04-24] MEDS: metFORMIN HCL 500 MG TABLET (FP) PO SCH (17:26)
[2025-04-24] MEDS: IBUPROFEN 600 MG TABLET (FP) PO PRN (17:27)
[2025-04-24] MEDS: INSULIN (NOVOLOG) ASPART 100 UNITS/ML 10ML VIAL SQ SCH (17:32)
[2025-04-24] MEDS: THIAMINE 100 MG TABLET PO SCH (22:39)
[2025-04-24] MEDS: MELATONIN 5 MG TABLETS PO SCH (22:39)
[2025-04-24] MEDS: INSULIN GLARGINE (LANTUS) 100 UNITS/ML UNITS SQ SCH (22:40)
[2025-04-24] MEDS: METHOCARBAMOL 500 MG TABLET PO PRN (22:43)
[2025-04-25] MEDS: LISINOPRIL 10 MG TABLET PO SCH (09:35)
[2025-04-25] MEDS: NALTREXONE HCL 50 MG TABLET PO SCH (10:36)
[2025-04-25 11:37] LABS: MCHC 32.5 g/dl (32.3-36.5); MEAN CELL VOLUME 90.1 fl (79.0-92.2); MEAN PLT VOLUME 10.2 fl (9.4-12.4); RDW 12.8 % (12.2-16.4)
[2025-04-25 12:09] LABS: GLUCOSE,RANDOM 370.0 mg/dL (74-106); TOT PROT 6.5 g/dl (6.4-8.2)
[2025-04-25 12:10] LABS: CO2 23.0 mmol/L (21-32)
[2025-04-25 12:11] LABS: ALK PHOS 143.0 U/L (40-150)
[2025-04-25 12:14] LABS: SGOT/AST 36.0 U/L (5-34); SGPT/ALT 18.0 U/L (0-55)
[2025-04-25 12:15] LABS: CREATININE 0.61 mg/dL (0.55-1.3); LDL CHOLESTEROL (ONLY SJRH) 75.0 mg/dL (5-100)
[2025-04-25] MEDS: ACETAMINOPHEN 325 MG TABLET (FP) PO PRN (14:19)
[2025-04-25] MEDS ORDERED: INSULIN ASPART SLIDING SCALE (NOVOLOG) 1 VIAL SQ ONE (17:09)
[2025-04-26] MEDS ORDERED: INSULIN ASPART SLIDING SCALE (NOVOLOG) 1 VIAL SQ ONE ×2 (07:28→17:17)
[2025-04-26] MEDS: BENZONATATE 200 MG CAPSULE PO PRN (17:44)
[2025-04-27] MEDS: ACETAMINOPHEN 325 MG TABLET (FP) PO PRN (05:53)
[2025-04-27 08:41] VITALS: RESP 16
[2025-04-28 08:45] VITALS: BP 146/70; PULSE 83; TEMP 97.3
== END 2025-04-28 09:55 | disposition home or self-care (01) | DRG 774 ==
LOC: YASAS 08:18 → SUATTDRO 08:18 → Y6N 09:40
PROVIDERS: ADMIT Family Medicine; ATTEND Student in an Organized Health Care Education/Training Program
PROC: HZ2ZZZZ Detoxification Services for Substance Abuse Treatment (ICD-10-PCS; principal; 2025-04-24)
DX: F10.230 Alcohol dependence with withdrawal, uncomplicated (principal); F17.210 Nicotine dependence, cigarettes, uncomplicated; I10 Essential (primary) hypertension; Z59.00 Homelessness unspecified; F14.20 Cocaine dependence, uncomplicated; E11.9 Type 2 diabetes mellitus without complications; G51.0 Bell's palsy
CPT/HCPCS: 36415; 80053; 80061; 80307; 82962; 83036; 85027; 86780; 93005; 93010